=== PATIENT | female | born 2000 | race Caucasian/White ===

== ENCOUNTER 2019-05-16 08:53 | Emergency (ER) | payer OTHER ==
[~2019-05-16] VITALS: Ht 162.6 cm; Wt 65.3 kg
--- OUTSIDE RECORDS SUMMARY | 2019-05-16 08:54 | XMS REPORT ---
Author Author [facility] Address Unknown Phone Unavailable Care Team Providers Care Language Arts Teacher Name Role Phone Unavailable Unavailable Payers Payer Name Policy Type Policy Number Effective Date Expiration Date Problems This patient has no known problems. Allergies, Adverse Reactions, Alerts This patient has no known allergies or adverse reactions. Medications This patient has no known medications. Results Test Description Test Time Test Comments Text Results Atomic Results Result Comments - XR CHEST 2 V 2018-06-18 16:52:00 Name: MADELEINE PATRICK [facility] : 2000 Age/S:17 /F [address] [facility] Unit#:[id number] Loc: [place] [address] Phys: EDDOC GENERIC FOR EDM Dis Date: PHONE #: [phone] Status: REG CLI FAX #: [phone] Exam Date: 06/18/2018 Reason: R05, COUGH EXAMS: CPT CODE: [id number] XR CHEST 2 V 24170 REASON FOR EXAM: R05, COUGH Exam Order Date: 06/18/2018 4:25 PM Ordering MAmberly: EDDOC GENERIC FOR EDM PROCEDURE: - XR CHEST 2 V COMPARISON: FINDINGS: PA and lateral views of the chest show clear lungs without evidence of consolidation. No evidence of effusion. The heart size is within normal limits. Pulmonary vasculatures are unremarkable. The osseous structures are grossly intact. IMPRESSION: No active disease. at 1652 Reported and signed by: Jorge Harman M.D. CC: Technologist: Nay Ram Trnscrpt Data: 06/18/2018 ([id number]) ArmandoL Orig Print D/T: S: 06/18/2018 ([id number]) PAGE 1 Signed Report
[2019-05-16] MEDS ORDERED: KETOROLAC TROMETHAMINE 30 MG/ML VIAL IV STA (08:59)
[2019-05-16] MEDS ORDERED: ONDANSETRON HCL INJ 2MG/ML 2ML 2 MG/ML VIAL IV STA (08:59)
[2019-05-16] MEDS ORDERED: SODIUM CHLORIDE 0.9% 1000ML 1,000 ML IV STA (08:59)
[2019-05-16 09:19] LABS: BASOPHILS % 0.7 % (0.0-1.0); EOSINOPHILS # (AUTO) 0.1 (0.0-0.4); EOSINOPHILS % 0.8 % (0.0-6.0); HEMATOCRIT 38.1 % (34.2-44.1); HEMOGLOBIN 12.3 g/dL (12.0-16.0); LYMPHOCYTES # (AUTO) 2.2 (1.0-3.2); LYMPHOCYTES % 35.8 % (18.0-39.1); MEAN CORPUSCULAR HEMOGLOBIN 30.9 pg (28-32); MEAN CORPUSCULAR HGB CONC 32.3 g/dL (31-35); MEAN CORPUSCULAR VOLUME 95.7 fL (81-99); MONOCYTES # (AUTO) 0.3 (0.2-0.8); MONOCYTES % 5.2 % (4.4-11.3); NEUTROPHILS # (AUTO) 3.5 (2.1-6.9); NEUTROPHILS % 57.3 % (38.7-80.0); PLATELET COUNT 234 x10e3/uL (140-360); RED BLOOD COUNT 3.98 x10e6/uL (3.6-5.1); RED CELL DISTRIBUTION WIDTH 12.6 % (11.7-14.4)
[2019-05-16 09:29] LABS: INR 0.96; PROTHROMBIN TIME 13.4 seconds (11.9-14.5)
[2019-05-16 09:31] LABS: PREGNANCY TEST, URINE NEGATIVE (NEGATIVE)
[2019-05-16 09:37] LABS: ALANINE AMINOTRANSFERASE 19 IU/L (0-55); ALBUMIN 3.9 g/dL (3.5-5.0); ALBUMIN/GLOBULIN RATIO 1.8 (0.8-2.0); ALKALINE PHOSPHATASE 52 IU/L (40-150); BLOOD UREA NITROGEN 8 mg/dL (7-26); BUN/CREATININE RATIO 11 (6-25); CARBON DIOXIDE 24 mmol/L (22-29); CHLORIDE 109 mmol/L (98-107); CREATININE, SERUM 0.75 mg/dL (0.57-1.11); EST GLOMERULAR FILTRATION RATE > 60 ML/MIN (60-); GLUCOSE 125 mg/dL (74-118); SODIUM 140 mmol/L (136-145)
[2019-05-16 09:50] LABS: BILIRUBIN,URINE SMALL (NEGATIVE); CLARITY,URINE CLEAR (CLEAR); COLOR,URINE YELLOW (YELLOW); KETONES,URINE 1+ (NEGATIVE); LEUKOCYTE ESTERASE ,URINE NEGATIVE (NEGATIVE); NITRITE,URINE NEGATIVE (NEGATIVE); PROTEIN,URINE DIPSTICK 1+ (NEGATIVE); URINE UROBILINOGEN 0.2 mg/dL (0.2 - 1)
--- NOTE | 2019-05-16 09:55 | Diagnostic Imaging Report ---
EXAMINATION: CHEST SINGLE (PORTABLE) INDICATION: Abdominal pain COMPARISON: None FINDINGS: LINES/TUBES:None LUNGS:The lungs are well-inflated. No focal consolidation or pulmonary edema. PLEURA:No pleural effusion or pneumothorax. MEDIASTINUM:The cardiomediastinal silhouette appears normal in size and shape. BONES/SOFT TISSUES:No acute osseous injury. ABDOMEN:No free air under the diaphragm. IMPRESSION: No focal pneumonia or pulmonary edema. Signed by: Jillian Holloway MD on 05/16/2019 9:53 AM
[2019-05-16 09:59] LABS: BACTERIA,URINE RARE /HPF; EPITHELIAL CELLS,URINE FEW /LPF
[2019-05-16 11:10] LABS: LIPASE 18 U/L (8-78)
--- NOTE | 2019-05-16 11:46 | Diagnostic Imaging Report ---
EXAM: CT Abdomen and Pelvis WITH intravenous contrast INDICATION: Right abdominal pain COMPARISON: None. TECHNIQUE: Abdomen and pelvis were scanned utilizing a multidetector helical scanner from the lung base to the pubic symphysis after administration of IV contrast. Coronal and sagittal reformations were obtained. Routine protocol was performed. Scan was performed during portal venous phase. IV CONTRAST: 100mL of Isovue 370 ORAL CONTRAST: Water RADIATION DOSE: Total DLP: 238 mGy*cm Dose modulation, iterative reconstruction, and/or weight based adjustment of the mA/kV was utilized to reduce the radiation dose to as low as reasonably achievable. FINDINGS: LOWER THORAX: Normal. HEPATOBILIARY: No focal hepatic lesions. No biliary ductal dilatation. The gallbladder appears unremarkable. SPLEEN: No splenomegaly. PANCREAS: No focal masses or ductal dilatation. ADRENALS: No adrenal nodules. KIDNEYS/URETERS: Minimal bilateral hydronephrosis right greater than left. No renal calculi. No renal mass lesion. PELVIC ORGANS/BLADDER: Distended bladder. PERITONEUM / RETROPERITONEUM: No free air or fluid. LYMPH NODES: No lymphadenopathy. VESSELS: Unremarkable. GI TRACT: No abnormal bowel thickening. No bowel obstruction. Normal appendix BONES AND SOFT TISSUES: No acute osseous injury. IMPRESSION: Normal appendix. Minimal bilateral hydronephrosis right greater than left without evidence of renal calculus or mass lesion. Distended bladder. Signed by: Jillian Holloway MD on 05/16/2019 11:43 AM
[2019-05-16] MEDS ORDERED: CEFTRIAXONE SOD 1 GM/NS 50 ML 50 ML IV ONE (12:30)
--- NOTE | 2019-05-16 12:53 | NUR ---
post void bladder scan = 15ml, er md in room when scan completed
[2019-05-16] MEDS ORDERED: SODIUM CHLORIDE 0.9% 50ML 50 ML ONE (13:15)
[2019-05-16] MEDS ORDERED: IOPAMIDOL 370 MG/ML 200 ML INFUS..BTL INJ ONE (13:15)
== END 2019-05-16 13:42 | disposition home or self-care (01) ==
LOC: ER 08:53
DX: R10.31 Right lower quadrant pain (principal); R11.2 Nausea with vomiting, unspecified; N30.91 Cystitis, unspecified with hematuria; J45.909 Unspecified asthma, uncomplicated
CPT/HCPCS: 36415; 71045; 74177; 80053; 81001; 81025; 83690; 85025; 85610; 85730; 87086; 99284; J0696; J1885; J2405; J7030; Q9967